=== PATIENT | male | born 1955 | race Caucasian/White ===

== ENCOUNTER 2016-10-19 08:23 | Day surgery (SDC) | payer SELFPAY ==
[~2016-10-19 08:23] MED LIST: DENIES; EQL FISH OIL 1,1 CA1 PO; IBUPROFEN200 M2 PO; IBUPROFEN800 MG PO; LAMISIL250 M1 PO; LISINOPRIL10 MG; LISINOPRIL10 MG PO; LISINOPRIL20 MG; NO HOME MEDICATION XX; PRINIVIL5 M1 PO; PROAIR RESPICL90 MCG INH; ZITHROMAX250MG Z-PAK PO
== END 2016-10-19 13:20 ==
LOC: SRG 08:23 → SHSC 08:33 → ORW 10:33 → PACU 11:57 → SHSC 12:13
PROC: 0VBF0ZZ Excision of Right Spermatic Cord, Open Approach (ICD-10-PCS; principal; 2016-10-19)
DX: N43.3 Hydrocele, unspecified (principal); I10 Essential (primary) hypertension; M17.9 Osteoarthritis of knee, unspecified; J45.909 Unspecified asthma, uncomplicated; Z98.890 Other specified postprocedural states; Z79.899 Other long term (current) drug therapy
CPT/HCPCS: J0690